=== PATIENT | male | born 1960 | race Caucasian/White ===

== ENCOUNTER → 2021-04-27 | Outpatient (CLI) | payer OTHER ==
[~2021-04-27] MED LIST: ALDACTONE50 MG PO; ALLOPURINOL 10100 M1 PO; BENICAR40 MG PO; CARDURA4 MG PO; CARVEDILOL12.5 MG PO; DEMADEX20 MG PO; ELIQUIS5 MG PO; FLONASE 0.05%50 MCG NASAL; GLIPIZIDE 10 MG10 MG PO; METFORMIN HCL500 MG PO; NORVASC10 MG PO; PIOGLITAZONE15 MG PO; POTASSIUM20 PO; SINGULAIR 10 MG10 M1 PO
== END ==
LOC: SJCVCIMAG 13:26
PROVIDERS: ATTEND Internal Medicine
DX: I35.8 Other nonrheumatic aortic valve disorders (principal); I11.0 Hypertensive heart disease with heart failure; I50.9 Heart failure, unspecified; E11.9 Type 2 diabetes mellitus without complications; I48.91 Unspecified atrial fibrillation